=== PATIENT | female | born 1980 | race Caucasian/White ===

== ENCOUNTER 2021-05-01 18:28 | Emergency (ER) | payer SELFPAY ==
[2021-05-01 21:42] VITALS: BP 123/85
== END 2021-05-01 21:42 | disposition home or self-care (01) ==
LOC: ED 18:28
DX: S42.192A Fracture of other part of scapula, left shoulder, initial encounter for closed fracture (principal); S90.31XA Contusion of right foot, initial encounter; F17.200 Nicotine dependence, unspecified, uncomplicated; W10.9XXA Fall (on) (from) unspecified stairs and steps, initial encounter
CPT/HCPCS: 19812; A4565